=== PATIENT | female | born 1970 | race Caucasian/White ===

== ENCOUNTER → 2016-09-05 | Outpatient (CLI) | payer OTHER ==
[~2016-09-05] MED LIST: ADVIL200 M3 PO; EFFEXOR37.5 MG PO; EXCEDRIN MIGRAI1 TA2 PO; LOMOTIL WHITE2.5 M1
== END | disposition home or self-care (01) ==
LOC: CSSDAY 15:07
DX: R51 Headache (principal); Z79.899 Other long term (current) drug therapy
CPT/HCPCS: 96365; 96367; 96374; J1100; J3475

== ENCOUNTER → 2016-09-06 | Outpatient (CLI) | payer OTHER | END | disposition home or self-care (01) | LOC: CSSDAY 15:40 | DX: R51 Headache (principal); Z79.899 Other long term (current) drug therapy | CPT/HCPCS: 96365; 96366; 96374; J1100; J3475 ==

== ENCOUNTER → 2016-09-07 | Outpatient (CLI) | payer OTHER | END | disposition home or self-care (01) | LOC: CSSDAY 15:15 | DX: R51 Headache (principal); Z79.899 Other long term (current) drug therapy | CPT/HCPCS: 96365; 96367; 96375; J1100; J3475 ==

== ENCOUNTER → 2016-09-08 | Outpatient (CLI) | payer OTHER | END | disposition home or self-care (01) | LOC: CSSDAY 15:48 | DX: R51 Headache (principal); Z79.899 Other long term (current) drug therapy | CPT/HCPCS: 96365; 96367; 96374; J1100; J3475 ==

== ENCOUNTER → 2017-02-27 | Outpatient (CLI) | payer OTHER ==
--- NOTE | ~2017-02-27 | MY30 ---
[facility] A Service of [facility] RADIOLOGY TEXT RESULTS PATIENT: SOLITARIO SALAZAR LOCATION: [facility] : 74 UNIT #: [id number] AGE: [address]: Lorena Patel MD SEX: F ORDER DR: [id number] [address] [id number] O MR#: [id number] Acc #: [id number] NAME: SOLITARIO SALAZAR : 1970 SEX: F STUDY DATE/TIME: 02/27/2017 16:15 UNIT: [facility] ROOM: STUDY DESCRIPTION: MY SCREEN JUSTICE BILAT DIGITAL Attending Physician: Lorena Patel M.D. Referring Physician: Lorena Patel M.D. Ordering Physician: Lorena Patel M.D. Primary Care Physician: Tyler Dallas M.D. MEDICAL IMAGING REPORT This report is preliminary unless electronic signature is present. EXAM Bilateral digital screening mammogram with CAD 02/27/2017 HISTORY Family history of breast cancer in a paternal aunt in her 50s. No personal history of breast cancer or current complaints. COMPARISON Bilateral screening mammogram 01/29/2016, 12/05/2014. Right breast diagnostic mammogram and ultrasound 02/15/2016. FINDINGS CC and MLO views were obtained of each breast utilizing digital technique and reviewed with an FDA-approved CAD device. Heterogeneously dense fibroglandular tissue is present bilaterally which can limit sensitivity of mammography. No new or suspicious nodule, architectural distortion or clustered microcalcification is seen. No abnormal skin thickening or nipple retraction. IMPRESSION BIRADS category 2. Benign findings. Routine bilateral screening mammogram is recommended in 1 year. Patients over the age of 40 are entered into a reminder system with target due date for the next mammogram. A result letter will also be sent to the patient. BIRADS: 2 Benign finding [facility] A Service of [facility] RADIOLOGY TEXT RESULTS PATIENT: SOLITARIO SALAZAR LOCATION: [facility] : 74 UNIT #: [id number] AGE: [address]: Lorena Patel MD SEX: F ORDER DR: Dictated by... Lia Ramos M.D. THIS IS AN ELECTRONICALLY VERIFIED REPORT Lia Ramos M.D. at 02/28/2017 5:03 PM BENTLEY/libra TD: 02/28/2017 11:09 JOB #: [id number] MEDICAL IMAGING REPORT Page 1 of 1
== END | disposition home or self-care (01) ==
LOC: SMAM 15:24
DX: Z12.31 Encounter for screening mammogram for malignant neoplasm of breast (principal); Z80.3 Family history of malignant neoplasm of breast
CPT/HCPCS: G0202